=== PATIENT | male | born 1995 | race Caucasian/White ===

== ENCOUNTER 2021-03-16 13:50 | Emergency (ER) | payer OTHER, SELFPAY ==
[2021-03-16 13:59] VITALS: BP 151/91; PULSE 73; RESP 16; TEMP 36.7; O2SAT 99; BMI 22.8
--- NOTE | 2021-03-16 17:50 | ED_ITS ---
HPI - Abdominal Pain General: Chief Complaint: Abdominal Pain Stated Complaint: POSS HERNIA/MUSCLE PAIN IN ABD Time Seen by Provider: 03/16/21 17:50 History of Present Illness: HPI narrative: 25-year-old male comes in today with mid epigastric pain. Patient reports for the last year he has had pain on and off in the area. Patient felt like he had a protrusion there in the mid line of his abdomen and it had become tender over the last 2 days. Patient was concerned he may have developed a hernia. Review of Systems General: Reports: 10 or more systems reviewed and unremarkable except in HPI and below GI: Reports: abdominal pain Physical Exam Const: COMMON NORMALS: no acute distress and patient oriented x3 GENERAL APPEARANCE: cooperative HENMT: COMMON NORMALS: normocephalic and Normal external nose present HEAD & SCALP: normal to inspection and normocephalic NOSE: Normal external nose present MOUTH: Normal oral and palatal mucosa present Eye: GENERAL EYE: appearance normal, both eyes and all related structures Neck/C-Spine: COMMON NORMALS: full ROM Lymph: LYMPHATIC: no lymphadenopathy noted Chest: COMMONS NORMALS: normal inspection of the chest OTHER: Xiphoid process tenderness Resp: COMMON NORMALS: normal respiratory effort EFFORT & INSPECTION: Yes able to speak in complete sentences Cardio: COMMON NORMALS: regular rate and regular rhythm RATE: regular rate RHYTHM: regular rhythm GI: COMMON NORMALS: Soft to palpation AUSCULTATION: Yes normoactive bowel sounds PALPATION: Yes Soft to palpation and Yes Tenderness to palpation present (GI) (Midepigastric) Back/Pelvis: COMMON NORMALS: thoracic and lumbar spine normal to inspection Extremity: COMMON NORMALS: normal to inspection Neuro: COMMON NORMALS: patient oriented x3 and moves all extremities Psych: COMMON NORMALS: mental status grossly normal and cooperative Skin: COMMON NORMALS: no rashes or lesions noted GENERAL SKIN EXAM: no rashes or lesions noted Course Vital Signs: Vital signs: Vital Signs Temperature 98.0 F 03/16/21 13:59 Pulse Rate 73 03/16/21 13:59 Respiratory Rate 16 03/16/21 13:59 Blood Pressure 151/91 03/16/21 13:59 Pulse Oximetry 99 03/16/21 13:59 MDM - Abdominal Pain MDM Narrative: Medical decision making narrative: Patient comes in today with some epigastric abdominal pain. On exam abdomen is soft with some tenderness in the midepigastric region. Bowel sounds are normal active. Skin is warm and dry. Vital signs are normal. Differential diagnosis includes muscle strain, contusion, gallbladder disease, gastritis, gastroenteritis. Laboratory values were unremarkable. Urinalysis was unremarkable. Lipase was normal. CT of abdomen and pelvis indicated some increased fluid in the small bowel suggesting enteritis. Recommended patient be treated with gastroenteritis with Zofran as needed for nausea and vomiting. Patient was encouraged to eat a bland diet and follow-up with primary care for persistent symptoms or new concerns. Patient was recommended to return to the ER for worsening symptoms with high fever or blood in vomit or stool. Lab Data: Labs: Lab Results 03/16/21 03/16/21 03/16/21 17:50 17:50 17:59 WBC 8.5 10^3/uL 10^3/ uL (4.0-10.0) RBC 5.31 10^6/uL H 10 ^6/uL (4.1-5.3) Hgb 16.5 g/dL g/dL (11.7-16.6) Hct 48.0 % % (42.0-52.0) MCV 90.4 fl fl (80-94) MCH 31.1 pg pg (28.0-34.0) MCHC 34.4 g/dL g/dL (30.0-36.0) RDW 12.5 % % (12.1-15.1) Plt Count 291 10^3/cmm 10^3 /cmm (130-400) MPV 9.7 fL fL (7.4-10.4) Neut % (Auto) 43.5 % % Lymph % (Auto) 44.6 % % [place] % (Auto) 8.0 % % Eos % (Auto) 3.0 % % Baso % (Auto) 0.7 % % Neut # (Auto) 3.71 10^3/uL 10^3 /uL (1.8-7.7) Lymph # (Auto) 3.8 10^3/uL 10^3/ uL (0.8-4.8) [place] # (Auto) 0.7 10^3/uL 10^3/ uL (0.2-0.9) Eos # (Auto) 0.3 10^3/uL 10^3/ uL (0.0-0.8) Baso # (Auto) 0.1 10^3/uL 10^3/ uL (0.0-0.1) Nucleated RBC % (a uto) 0 % % Nucleated RBCs # 0.0 /100WBC /100W BC Sodium 141 mmol/L mmol/L (136-145) Potassium 4.2 mmol/L mmol/L (3.5-5.1) Chloride 103 mmol/L mmol/L (98-107) Carbon Dioxide 28 mmol/L mmol/L (22-29) Anion Gap 14.2 (5-19) BUN 16 mg/dL mg/dL (6-20) Creatinine 0.7 mg/dL mg/dL (0.7-1.2) GFR Calculation 136.3 mL/min H mL /min (90-130) Glucose 85 mg/dL mg/dL (65-115) Calculated Osmolal ity 292 mOsm/kg mOsm/ kg (285-295) Calcium 9.5 mg/dL mg/dL (8.5-10.5) Total Bilirubin 0.4 mg/dL mg/dL (0.15-1.2) AST 27 U/L U/L (0-40) ALT 27 U/L U/L (0-41) Alkaline Phosphata se 83 IU/L IU/L (40-130) Total Protein 7.9 g/dL g/dL (6.6-8.7) Albumin 4.9 g/dL g/dL (3.5-5.2) Globulin 3.0 g/dL g/dL (1.3-4.6) Lipase 47 U/L U/L (13-60) Urine Color Straw (Yellow) Urine Appearance Hazy A (CLEAR) Urine pH 8 H (5-7) Ur Specific Gravit y 1.015 (1.005-1.030) Urine Protein Neg (Negative) Urine Glucose (UA) Norm (Normal) Urine Ketones Negative (Negative) Urine Blood Neg (Negative) Urine Nitrate Negative (Negative) Urine Bilirubin Neg (Negative) Prot Sulfosalicyli c Acd Negative (Negative) Urine Urobilinogen Norm mg/dL mg/dL (Negative) Ur Leukocyte Gifty ase Negative (Negative) Discharge Plan Discharge Patient Disposition: Home Clinical Impression: Gastroenteritis Condition: Stable Prescriptions: New ondansetron 4 mg tablet,disintegrating 4 mg PO Q8H PRN (Reason: nausea and vomiting) Qty: 7 RF: 0 Discharge Orders: Discharge ED (Routine); Ordered 03/16/21 Ordered By: Eleazar Ching Discharge Diet: Usual diet Discharge Activity: Increase activity as tolerated Patient Instructions: Gastroenteritis (ED), Opioid Safety Activity Restrictions/Additional Instructions: Home and rest. Drink plenty of fluids. Use medication as needed for nausea. Eat a bland diet until symptoms resolve. A bland diet avoids greasy and spicy foods. Follow-up with primary care for further evaluation and treatment as needed. Return to the ER for blood in vomit or stool, or fever greater than 100.4. Coding Level of Care Code ED [employer] Att[employer] for [employer] Exam Comprehensive
--- NOTE | 2021-03-16 17:57 | CTR_ITS ---
PROCEDURE INFORMATION: Exam: CT Abdomen And Pelvis With Contrast Exam date and time: 03/16/2021 5:57 PM Age: 25 years old Clinical indication: Abdominal pain; Periumbilical; Additional info: Abd pain, epigastric pain TECHNIQUE: Imaging protocol: Computed tomography of the abdomen and pelvis with contrast. Radiation optimization: All CT scans at this facility use at least one of these dose optimization techniques: automated exposure control; mA and/or kV adjustment per patient size (includes targeted exams where dose is matched to clinical indication); or iterative reconstruction. Contrast material: OMNI 300; Contrast volume: 95 ml; Contrast route: INTRAVENOUS (IV); COMPARISON: No relevant prior studies available. RADIATION DOSE METRICS: Total DLP (mGy-cm): 819.53 FINDINGS: Liver: Normal. No mass. Gallbladder and bile ducts: Normal. No calcified stones. No ductal dilation. Pancreas: Normal. No ductal dilation. Spleen: Normal. No splenomegaly. Adrenal glands: Normal. No mass. Kidneys and ureters: Normal. No hydronephrosis. Stomach and bowel: Prominent fluid in the small bowel without dilation may reflect an enteritis. Appendix: No evidence of appendicitis. Intraperitoneal space: Unremarkable. No free air. No significant fluid collection. Vasculature: Unremarkable. No abdominal aortic aneurysm. Lymph nodes: Unremarkable. No enlarged lymph nodes. Urinary bladder: Unremarkable as visualized. Reproductive: Unremarkable as visualized. Bones/joints: Unremarkable. No acute fracture. Soft tissues: Unremarkable. CT/CT abdomen pelvis w con* [id number] IMPRESSION: Prominent fluid in the small bowel without dilation may reflect an enteritis. Radiation Dose CTDIVOL = (mGy): DLP = 819.53 (mGy-cm)
[2021-03-16 18:12] LABS: Basophils # 0.1 10^3/uL (0.0-0.1); Basophils % 0.7 %; Eosinophils # 0.3 10^3/uL (0.0-0.8); Hemoglobin 16.5 g/dL (11.7-16.6); Lymphocytes # 3.8 10^3/uL (0.8-4.8); Lymphocytes % 44.6 %; Mean Corpuscular HGB Conc 34.4 g/dL (30.0-36.0); Mean Corpuscular Hemoglobin 31.1 pg (28.0-34.0); Mean Corpuscular Volume 90.4 fl (80-94); Mean Platelet Volume 9.7 fL (7.4-10.4); Monocytes # 0.7 10^3/uL (0.2-0.9); Neutrophils # 3.71 10^3/uL (1.8-7.7); Neutrophils % 43.5 %; Nucleated Red Blood Cells % 0 %; Platelet Count 291 10^3/cmm (130-400); Red Blood Count 5.31 10^6/uL (4.1-5.3); Red Cell Distribution Width 12.5 % (12.1-15.1); White Blood Count 8.5 10^3/uL (4.0-10.0)
[2021-03-16 18:13] LABS: Add Urine Microscopic? NO; Charge for UA Resulting for Rev
[2021-03-16 18:19] LABS: Urine Appearance Hazy (CLEAR); Urine Color Straw (Yellow)
[2021-03-16 18:20] LABS: Bilirubin Urine Neg (Negative); Blood Urine Neg (Negative); Glucose Urine UA Norm (Normal); Ketones Urine Negative (Negative); Leukocyte Esterase Urine Negative (Negative); Nitrate Urine Negative (Negative); Protein Urine Neg (Negative); Specific Gravity, Urine 1.015 (1.005-1.030); Sulfosalicylic Acid Urine Negative (Negative); Urobilinogen Urine Norm (Negative); pH Urine 8 (5-7)
[2021-03-16] MEDS: iohexol 300 mg/mL 100 mL Btl IV (18:20)
[2021-03-16 18:23] LABS: Albumin Level 4.9 g/dL (3.5-5.2); Alkaline Phosphatase 83 IU/L (40-130); Blood Urea Nitrogen 16 mg/dL (6-20); Calcium 9.5 mg/dL (8.5-10.5); Carbon Dioxide 28 mmol/L (22-29); Chloride 103 mmol/L (98-107); Glomerular Filtration Rate 136.3 mL/min (90-130); Glucose 85 mg/dL (65-115); Lipase 47 U/L (13-60); Osmolality Calculated 292 mOsm/kg (285-295); Sodium 141 mmol/L (136-145); Total Bilirubin 0.4 mg/dL (0.15-1.2); Total Protein 7.9 g/dL (6.6-8.7)
[2021-03-16 18:27] LABS: Alanine Aminotransferase 27 U/L (0-41); Anion Gap 14.2 (5-19); Aspartate Amino Transferase 27 U/L (0-40); Potassium 4.2 mmol/L (3.5-5.1)
[2021-03-16 19:52] VITALS: BP 122/73; PULSE 53; RESP 18; O2SAT 98
== END 2021-03-16 19:54 | disposition home or self-care (01) ==
PROVIDERS: Physician Assistant; Emergency Provider Nurse Practitioner Family
DX: K52.9 Noninfective gastroenteritis and colitis, unspecified (principal)
CPT/HCPCS: 74177; 80053; 81003; 83690; 85025; 99282; Q9967